=== PATIENT | male | born 1985 | race African-American/Black ===

== ENCOUNTER 2021-08-03 10:30 | Emergency (ER) | payer SELFPAY ==
[~2021-08-03] VITALS: Ht 170.2 cm; Wt 81.8 kg
[2021-08-03] MEDS ORDERED: depakote PO (10:59)
[2021-08-03 12:37] LABS: HEMATOCRIT 40.8 % (42.0-52.0); HEMOGLOBIN 13.8 g/dl (13.5-17.5); MEAN CORPUSCULAR HEMOGLOBIN 30.9 pg (27.0-33.0); MEAN CORPUSCULAR HGB CONC 33.8 g/dl (32.0-36.5); MEAN CORPUSCULAR VOLUME 91.3 fl (80.0-96.0); PLATELET COUNT, AUTOMATED 209 10^3/uL (150-450); RED BLOOD COUNT 4.47 10^6/uL (4.30-6.10); WHITE BLOOD COUNT 5.2 10^3/uL (4.0-10.0)
[2021-08-03 13:11] LABS: ACETAMINOPHEN LEVEL < 2.0 UG/ML (10.0-30.0); ALBUMIN 3.7 GM/DL (3.2-5.2); ALT/SGPT 24 U/L (12-78); BILIRUBIN,DIRECT < 0.1 MG/DL (0.0-0.2); BILIRUBIN,TOTAL 0.4 MG/DL (0.2-1.0); BLOOD UREA NITROGEN 6 MG/DL (7-18); CALCIUM LEVEL 9.2 MG/DL (8.5-10.1); CARBON DIOXIDE LEVEL 26 MEQ/L (21-32); CHLORIDE LEVEL 108 MEQ/L (98-107); CREATININE FOR GFR 1.06 MG/DL (0.70-1.30); ETHYL ALCOHOL (ETHANOL) < 0.003 % (0.000-0.010); GLOMERULAR FILTRATION RATE > 60.0 (>60); GLUCOSE, FASTING 107 MG/DL (70-100); POTASSIUM SERUM 4.4 MEQ/L (3.5-5.1); SALICYLATE LEVEL < 1.7 MG/DL (5.0-30.0); SODIUM LEVEL 140 MEQ/L (136-145); TOTAL PROTEIN 7.3 GM/DL (6.4-8.2)
[2021-08-03 13:52] LABS: AMPHETAMINES LEVEL URINE NEGATIVE (NEGATIVE); BARBITURATES URINE NEGATIVE (NEGATIVE); BENZODIAZEPINES URINE POSITIVE (NEGATIVE); CANNABINOIDS URINE POSITIVE (NEGATIVE); COCAINE METABOLITE URINE NEGATIVE (NEGATIVE); METHADONE URINE NEGATIVE (NEGATIVE); OPIATES URINE NEGATIVE (NEGATIVE); PHENCYCLIDINE URINE NEGATIVE (NEGATIVE)
[2021-08-03 14:08] LABS: VALPROIC ACID (DEPAKOTE) < 3.0 UG/ML (50.0-100.0)
[2021-08-03] MEDS ORDERED: HOME MED LIST COMPLETE! XX SCH (18:25)
[2021-08-03] MEDS ORDERED: DEPA500T2 PO (18:25)
[2021-08-04 01:36] LABS: RSV AMPLIFICATION NEGATIVE (NEGATIVE)
[2021-08-04 08:46] VITALS: BP 122/91
--- NOTE | 2021-08-04 18:51 | ECGEPIP ---
[facility] - ED Test Date: 2021-08-03 Pat Name: CICI YANES Department: Room: - Gender: Male Technology Manager: XIOMY : 1985 Requested By: XAVIER Hill Order Number: [id number] Reading MD: Donny Hassan Measurements Intervals [place] Rate: 58 P: 32 VA: 162 QRS: 39 QRSD: 88 T: 13 QT: 376 QTc: 369 Interpretive Statements Sinus bradycardia INCOMPLETE RIGHT BUNDLE BRANCH BLOCK NONSPECIFIC T WAVE ABNORMALITY(S) NO PRIORS FOR COMPARISON Electronically Signed on 08-04-2021 18:51:26 EDT by Donny Hassan
== END 2021-08-04 08:48 ==
LOC: M ED 10:30
DX: F20.0 Paranoid schizophrenia (principal); F29 Unspecified psychosis not due to a substance or known physiological condition; F17.200 Nicotine dependence, unspecified, uncomplicated